=== PATIENT | male | born 1980 | race Caucasian/White ===

== ENCOUNTER 2018-02-10 11:31 | Emergency (ER) | payer OTHER ==
[~2018-02-10] VITALS: Ht 180.3 cm; Wt 102.1 kg
[~2018-02-10 11:31] MED LIST: KEFLEX250 MG PO; NOHOMEMEDICATIONS; PERCOCET 5-3251 EACH PO
[2018-02-10] MEDS ORDERED: LAMICTAL100 MG PO (11:39)
[2018-02-10] MEDS ORDERED: SEROQUEL 25 MG25 M1 PO (11:39)
[2018-02-10] MEDS ORDERED: ADDERALL 20 MG20 M1 PO (11:39)
[2018-02-10 11:51] LABS: URINE BILIRUBIN NEGATIVE (Negative); URINE BLOOD NEGATIVE (Negative); URINE CLARITY CLEAR; URINE COLOR YELLOW; URINE GLUCOSE-RANDOM NEGATIVE (Negative); URINE KETONES NEGATIVE (Negative); URINE LEUKOCYTES-REFLEX NEGATIVE (Negative); URINE NITRITE-REFLEX NEGATIVE (Negative); URINE PROTEIN NEGATIVE (Negative); URINE UROBILINOGEN 0.2 E.U./dl (0.2-1.0)
[2018-02-10 11:59] LABS: ABSOLUTE BASOPHILS 0.1 thou/uL (0.0-0.2); ABSOLUTE EOSINOPHILS 0.3 thou/uL (0.0-0.7); ABSOLUTE LYMPHOCYTES 2.2 thou/uL (0.8-5.3); ABSOLUTE MONOCYTES 0.6 thou/uL (0.0-1.2); ABSOLUTE NEUTROPHILS 4.7 thou/uL (1.6-8.1); BASOPHILS 0.7 %; EOSINOPHILS 3.2 %; HEMOGLOBIN 17.4 gm/dL (14.0-18.0); LYMPHOCYTES 28.7 %; MCH 31.7 pg (26.0-34.0); MCHC 34.7 g/dL (28.0-37.0); MCV 91.4 fL (80.0-100.0); MONOCYTES 7.2 %; MPV 8.8 fl. (7.2-11.1); NUCLEATED RBCS 0 /100WBC; PLATELET COUNT* 343 thou/uL (150-400); POLYS 60.2 %; RBC 5.47 mil/uL (4.50-6.00); RDW-CV 13.4 % (10.5-14.5); WBC 7.7 thou/uL (4.0-11.0)
[2018-02-10 12:04] LABS: CALCIUM 9.2 mg/dL (8.5-10.1); CREATININE 0.9 mg/dL (0.6-1.3)
[2018-02-10 12:05] LABS: POTASSIUM 4.5 mmol/L (3.5-5.1)
[2018-02-10 12:14] LABS: ALBUMIN 3.9 g/dL (3.4-5.0); TOTAL BILIRUBIN 0.6 mg/dL (<0.1-1.0); TOTAL PROTEIN 7.6 g/dL (6.4-8.2)
[2018-02-10] MEDS ORDERED: ZOFRAN ODT4 M1 PO (13:13)
[2018-02-10] MEDS ORDERED: NORCO 5-325 TA1 EACH PO (13:13)
[2018-02-10 13:26] VITALS: BP 126/80
== END 2018-02-10 13:27 | disposition home or self-care (01) ==
LOC: M.ERS 11:31
PROVIDERS: Emergency Medicine Emergency Medical Services
DX: R10.11 Right upper quadrant pain (principal); R10.31 Right lower quadrant pain; F32.9 Major depressive disorder, single episode, unspecified; Z90.89 Acquired absence of other organs; Z88.5 Allergy status to narcotic agent

== ENCOUNTER 2018-11-27 12:38 | Inpatient (IN) | payer OTHER ==
[~2018-11-27] VITALS: Ht 180.3 cm; Wt 108.4 kg
[~2018-11-27 12:38] MED LIST changes: +ADDERALL 20 MG20 M1 PO; +LAMOTRIGINE150 MG PO; +NORCO 5-325 TA1 EACH PO; +SEROQUEL 25 MG25 M1 PO; +ZOFRAN ODT4 M1 PO
[2018-11-27 12:54] VITALS: BP 162/124
[2018-11-27] MEDS ORDERED: CLONAZEPAM 0.50.5 M1 PO (12:56)
[2018-11-27] MEDS ORDERED: WELLBUTRIN XL300 MG PO (12:56)
[2018-11-27 13:06] LABS: URINE BILIRUBIN NEGATIVE (Negative); URINE BLOOD NEGATIVE (Negative); URINE CLARITY CLEAR; URINE COLOR YELLOW; URINE GLUCOSE-RANDOM NEGATIVE (Negative); URINE KETONES NEGATIVE (Negative); URINE LEUKOCYTES-REFLEX NEGATIVE (Negative); URINE NITRITE-REFLEX NEGATIVE (Negative); URINE PROTEIN NEGATIVE (Negative); URINE UROBILINOGEN 0.2 E.U./dl (0.2-1.0)
[2018-11-27 13:30] LABS: ABSOLUTE EOSINOPHILS 0.3 thou/uL (0.0-0.7); ABSOLUTE LYMPHOCYTES 2.4 thou/uL (0.8-5.3); ABSOLUTE MONOCYTES 0.7 thou/uL (0.0-1.2); ABSOLUTE NEUTROPHILS 7.8 thou/uL (1.6-8.1); BASOPHILS 0.4 %; EOSINOPHILS 2.5 %; HEMATOCRIT 47.8 % (42.0-52.0); HEMOGLOBIN 16.6 gm/dL (14.0-18.0); LYMPHOCYTES 21.7 %; MCH 31.6 pg (26.0-34.0); MCHC 34.7 g/dL (28.0-37.0); MCV 90.9 fL (80.0-100.0); MONOCYTES 6.2 %; MPV 8.3 fl. (7.2-11.1); NUCLEATED RBCS 0 /100WBC; PLATELET COUNT* 343 thou/uL (150-400); POLYS 69.2 %; RBC 5.25 mil/uL (4.50-6.00); RDW-CV 12.9 % (10.5-14.5); WBC 11.3 thou/uL (4.0-11.0)
[2018-11-27 13:39] LABS: ALBUMIN 3.9 g/dL (3.4-5.0); CALCIUM 8.9 mg/dL (8.5-10.1); CREATININE 0.9 mg/dL (0.6-1.3); POTASSIUM 3.9 mmol/L (3.5-5.1); TOTAL BILIRUBIN 0.5 mg/dL (<0.1-1.0); TOTAL PROTEIN 7.6 g/dL (6.4-8.2)
[2018-11-27 15:46] VITALS: BP 138/80
[2018-11-27 16:00] VITALS: BP 121/91
[2018-11-28] VITALS: BP 117/73
[2018-11-28 08:16] VITALS: BP 122/78
--- NOTE | 2018-11-28 15:53 | EKG ---
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
[2018-11-28 16:00] VITALS: BP 142/98
[2018-11-28 20:41] VITALS: BP 138/69
[2018-11-28 20:45] VITALS: BP 138/80
[2018-11-29 07:55] VITALS: BP 131/82
[2018-11-29 08:35] LABS: MCH 31.3 pg (26.0-34.0); MCV 92.2 fL (80.0-100.0); MPV 8.6 fl. (7.2-11.1); RBC 4.45 mil/uL (4.50-6.00); RDW-CV 13.1 % (10.5-14.5)
[2018-11-29 08:40] LABS: HEMOGLOBIN 13.9 gm/dL (14.0-18.0)
[2018-11-29 08:54] LABS: CALCIUM 8.5 mg/dL (8.5-10.1); MAGNESIUM 1.6 mg/dL (1.8-2.4); PHOSPHORUS* 3.4 mg/dL (2.5-4.9); POTASSIUM 3.8 mmol/L (3.5-5.1)
[2018-11-29 12:20] VITALS: BP 131/82
[2018-11-29] MEDS ORDERED: FLAGYL500 M1 PO (12:29)
[2018-11-29] MEDS ORDERED: AUGMENTIN 500-1 EACH PO (12:29)
[2018-11-29] MEDS ORDERED: VITAMIN D5000 UNIT PO (12:32)
== END 2018-11-29 16:41 | disposition home or self-care (01) | DRG 392 ==
LOC: M.ERS 12:38 → M.3W 14:40 → M.TBA-ER 14:40 → M.3W 15:50
PROVIDERS: Physician Assistant; ADMIT Internal Medicine
DX: K57.32 Diverticulitis of large intestine without perforation or abscess without bleeding (principal); F32.9 Major depressive disorder, single episode, unspecified; F17.210 Nicotine dependence, cigarettes, uncomplicated; F41.9 Anxiety disorder, unspecified; E55.9 Vitamin D deficiency, unspecified; Z88.6 Allergy status to analgesic agent; Z98.84 Bariatric surgery status; Z79.899 Other long term (current) drug therapy

== ENCOUNTER 2019-08-26 06:59 | Observation (INO) | payer OTHER ==
[~2019-08-26] VITALS: Ht 180.3 cm; Wt 104.3 kg
[~2019-08-26 06:59] MED LIST changes: +AUGMENTIN 500-1 EACH PO; +CLONAZEPAM 0.50.5 M1 PO; +FLAGYL500 M1 PO; +VITAMIN D10000 UNIT PO; +WELLBUTRIN XL300 MG PO
[2019-08-26 07:17] VITALS: BP 155/101
[2019-08-26] MEDS ORDERED: LISINOPRIL2.5 MG PO (07:21)
[2019-08-26 07:40] LABS: URINE BILIRUBIN NEGATIVE (Negative); URINE BLOOD NEGATIVE (Negative); URINE CLARITY CLEAR; URINE COLOR YELLOW; URINE GLUCOSE-RANDOM NEGATIVE (Negative); URINE KETONES NEGATIVE (Negative); URINE LEUKOCYTES-REFLEX NEGATIVE (Negative); URINE NITRITE-REFLEX NEGATIVE (Negative); URINE PROTEIN NEGATIVE (Negative); URINE UROBILINOGEN 0.2 E.U./dl (0.2-1.0)
[2019-08-26 07:51] LABS: ABSOLUTE EOSINOPHILS 0.2 thou/uL (0.0-0.7); ABSOLUTE LYMPHOCYTES 1.3 thou/uL (0.8-5.3); ABSOLUTE MONOCYTES 0.7 thou/uL (0.0-1.2); ABSOLUTE NEUTROPHILS 10.5 thou/uL (1.6-8.1); BASOPHILS 0.3 %; EOSINOPHILS 1.6 %; HEMATOCRIT 46.7 % (42.0-52.0); HEMOGLOBIN 16.3 gm/dL (14.0-18.0); LYMPHOCYTES 10.5 %; MCH 31.8 pg (26.0-34.0); MCHC 34.8 g/dL (28.0-37.0); MCV 91.2 fL (80.0-100.0); MONOCYTES 5.4 %; MPV 7.9 fl. (7.2-11.1); NUCLEATED RBCS 0 /100WBC; PLATELET COUNT* 321 thou/uL (150-400); POLYS 82.2 %; RBC 5.13 mil/uL (4.50-6.00); RDW-CV 13.2 % (10.5-14.5); WBC 12.8 thou/uL (4.0-11.0)
[2019-08-26 07:59] LABS: CALCIUM 8.6 mg/dL (8.5-10.1); CREATININE 0.9 mg/dL (0.6-1.3)
[2019-08-26 08:03] LABS: ALBUMIN 3.7 g/dL (3.4-5.0); TOTAL BILIRUBIN 0.6 mg/dL (<0.1-1.0)
[2019-08-26 09:52] VITALS: BP 140/85
[2019-08-26 10:27] VITALS: BP 147/101
[2019-08-26 18:12] VITALS: BP 131/86
[2019-08-26 19:30] VITALS: BP 137/99
[2019-08-27] MEDS ORDERED: PROBIOTIC1 EAC7 PO (15:39)
[2019-08-27] MEDS ORDERED: FLAGYL500 M1 PO (15:39)
[2019-08-27] MEDS ORDERED: CIPRO500 M1 PO (15:39)
[2019-08-27] MEDS ORDERED: ZOFRAN ODT4 MG DISSOLVE (15:42)
[2019-08-27] MEDS ORDERED: TRAMADOL 50 MG50 MG PO (15:42)
[2019-08-27 16:54] VITALS: BP 137/99
[2019-08-27 17:06] VITALS: BP 137/99
[2019-08-27 17:08] VITALS: BP 137/99
[2019-08-27 17:16] VITALS: BP 137/99
[2019-08-27 18:18] VITALS: BP 137/99
== END 2019-08-27 17:50 | disposition home or self-care (01) ==
LOC: M.ERS 06:59 → M.3W 09:08 → M.TBA-ER 09:08 → M.3W 09:54
PROVIDERS: Emergency Medicine; ADMIT Family Medicine
DX: K57.92 Diverticulitis of intestine, part unspecified, without perforation or abscess without bleeding (principal); Z23 Encounter for immunization

== ENCOUNTER 2019-09-30 16:12 | Emergency (ER) | payer OTHER ==
[~2019-09-30] VITALS: Ht 180.3 cm; Wt 108.9 kg
--- NOTE | ~2019-09-30 | EKG ---
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
[~2019-09-30 16:12] MED LIST changes: +CIPRO500 M1 PO; +LISINOPRIL2.5 MG PO; +PROBIOTIC1 EAC7 PO; +TRAMADOL 50 MG50 MG PO; +ZOFRAN ODT4 MG DISSOLVE
[2019-09-30] MEDS ORDERED: ADDERALL XR 2020 MG PO (16:21)
[2019-09-30 16:41] LABS: ABSOLUTE EOSINOPHILS 0.1 thou/uL (0.0-0.7); ABSOLUTE LYMPHOCYTES 1.6 thou/uL (0.8-5.3); ABSOLUTE MONOCYTES 0.6 thou/uL (0.0-1.2); ABSOLUTE NEUTROPHILS 6.4 thou/uL (1.6-8.1); BASOPHILS 0.5 %; EOSINOPHILS 1.3 %; HEMATOCRIT 48.6 % (42.0-52.0); HEMOGLOBIN 17.2 gm/dL (14.0-18.0); LYMPHOCYTES 18.3 %; MCH 32.2 pg (26.0-34.0); MCHC 35.3 g/dL (28.0-37.0); MCV 91.2 fL (80.0-100.0); MONOCYTES 6.9 %; MPV 8.8 fl. (7.2-11.1); NUCLEATED RBCS 0 /100WBC; PLATELET COUNT* 310 thou/uL (150-400); RBC 5.33 mil/uL (4.50-6.00); RDW-CV 13.7 % (10.5-14.5); WBC 8.7 thou/uL (4.0-11.0)
[2019-09-30 16:54] LABS: CALCIUM 8.9 mg/dL (8.5-10.1); CREATININE 0.8 mg/dL (0.6-1.3); POTASSIUM 3.6 mmol/L (3.5-5.1)
[2019-09-30 17:05] LABS: ALBUMIN 4.3 g/dL (3.4-5.0); MAGNESIUM 1.7 mg/dL (1.8-2.4); TOTAL BILIRUBIN 0.6 mg/dL (<0.1-1.0); TOTAL PROTEIN 7.8 g/dL (6.4-8.2)
[2019-09-30 19:50] VITALS: BP 135/80
== END 2019-09-30 19:51 | disposition home or self-care (01) ==
LOC: M.ERS 16:12
PROVIDERS: Emergency Medicine Emergency Medical Services
DX: R07.89 Other chest pain (principal); F32.9 Major depressive disorder, single episode, unspecified; I10 Essential (primary) hypertension; F17.200 Nicotine dependence, unspecified, uncomplicated; Z90.89 Acquired absence of other organs; Z88.5 Allergy status to narcotic agent

== ENCOUNTER → 2019-10-08 | Outpatient (CLI) | payer OTHER ==
[~2019-10-08] MED LIST changes: +ADDERALL XR 2020 MG PO
== END ==
LOC: M.CT 13:53
DX: Z13.6 Encounter for screening for cardiovascular disorders (principal)